=== PATIENT | male | born 1960 | race Caucasian/White ===

== ENCOUNTER 2016-09-14 18:54 | Emergency (ER) | payer OTHER ==
[~2016-09-14] VITALS: Ht 172.7 cm; Wt 74.3 kg
[2016-09-14 21:48] LABS: HEMATOCRIT 35.9 % (38.0-50.0); MCH 30.1 PG (29.0-34.0); MCV 88.6 FL (86-99); MEAN PLAT.VOLUME 9.7 uM^3 (9.0-12.4); PLATELET COUNT 259 K/uL (156-360); RBC DIS.WIDTH-CV 12.9 % (11.8-14.6); RBC DIS.WIDTH-SD 41.2 % (39-53); RED BLOOD COUNT 4.05 M/uL (4.00-5.50); WHITE BLOOD COUNT 9.9 K/uL (4.1-10.2)
[2016-09-14 21:57] LABS: CHLORIDE 103 mEq/L (99-109); POTASSIUM 4.2 mEq/L (3.7-5.4); SODIUM 136 mEq/L (136-147)
[2016-09-14 21:59] LABS: GLUCOSE 98 mg/dL (70-99)
[2016-09-14 22:00] LABS: ANION GAP 10 MEQ/L (2-14)
[2016-09-14 22:03] LABS: GFR ESTIMATE (CALCULATED) > 59 mL/min/
[2016-09-14 22:04] LABS: UREA NITROGEN (BUN) 12 mg/dL (9-23)
[2016-09-14 23:15] VITALS: BP 106/64
== END 2016-09-14 23:19 | disposition short-term general hospital (02) ==
LOC: EME 18:54
PROVIDERS: Emergency Medicine
DX: S72.001A Fracture of unspecified part of neck of right femur, initial encounter for closed fracture (principal); E78.5 Hyperlipidemia, unspecified; I10 Essential (primary) hypertension; W18.30XA Fall on same level, unspecified, initial encounter
CPT/HCPCS: 71010; 72100; 73502; 80048; 85027; 86850; 86900; 86901; 99281; 99285; J2270